=== PATIENT | male | born 1965 | race Caucasian/White ===

== ENCOUNTER 2019-09-21 13:55 | Emergency (ER) | payer OTHER ==
[~2019-09-21] VITALS: Ht 175.3 cm; Wt 68.7 kg
[2019-09-21] MEDS ORDERED: bacitracin 15gm ointment TP ONE (14:35)
[2019-09-21] MEDS ORDERED: ondansetron 4mg rapidly disintigrating tab PO ONE (14:35)
[2019-09-21] MEDS ORDERED: acetaminophen 325mg tablet PO ONE (14:35)
[2019-09-21] MEDS ORDERED: ceFAZolin 1gm IM kit IM ONE (15:00)
[2019-09-21] MEDS ORDERED: HYDR-3965 PO (16:33)
[2019-09-21] MEDS ORDERED: AMOX-117 PO (16:33)
[2019-09-21 16:47] VITALS: BP 150/95
== END 2019-09-21 16:50 | disposition home or self-care (01) ==
LOC: ER 13:55
DX: S62.632B Displaced fracture of distal phalanx of right middle finger, initial encounter for open fracture (principal); Z88.8 Allergy status to other drugs, medicaments and biological substances; Z79.2 Long term (current) use of antibiotics; Z79.899 Other long term (current) drug therapy; W45.8XXA Other foreign body or object entering through skin, initial encounter; Y93.89 Activity, other specified; Y92.89 Other specified places as the place of occurrence of the external cause; Y99.8 Other external cause status
CPT/HCPCS: 29130; 73140; 96372; 99284; J0690